=== PATIENT | male | born 1950 | race Caucasian/White ===

== ENCOUNTER 2016-10-27 07:38 | Day surgery (SDC) | payer MEDICARE ==
[~2016-10-27] VITALS: Ht 167.6 cm; Wt 98.0 kg
[~2016-10-27 07:38] MED LIST: ASCO-78 PO; BUPIVAC MPF-EPI 0.5%-1:200000 30 ML VIAL. ONE; CHOL200027 PO; FENTANYL PF 100 MCG/2 ML VIAL. IV PRN; FLUT9.9S NS; HYDROMORPHONE 2 MG/ML VIAL. IV PRN; IV RINGERS,LACTATED 1000ML 1,000 ML IV SCH; LIDOCAINE 1% 1 ML SYRINGE. ID PRN; LISI-334 PO; LORA10TA68 PO; MORPHINE SULFATE 2 MG/ML DISP.SYRIN. IV PRN; ONDANSETRON PF 4 MG/2 ML VIAL. IV PRN; PROCHLORPERAZINE 10 MG/2 ML VIAL. IV PRN; SIMV40TA3 PO; VITA1TAB19 PO
[2016-10-27] MEDS ORDERED: BACITRACIN 50,000 UNIT in IV NORMAL SALINE 500ML BAG 500 ML IRR ONE (08:00)
[2016-10-27] MEDS ORDERED: CEFAZOLIN 2GM PREMIX 50 ML IV ONE ×2 (08:00)
[2016-10-27 08:22] LABS: BASO # 0.1 x10^3/uL (0.0-0.2); BASO % 1 % (0-3); EOS % 2 % (0-3); HEMATOCRIT 42.1 % (39.0-53.0); HEMOGLOBIN 14.3 g/dL (13.0-17.5); LYMPH # 1.3 x10^3/uL (1.0-4.8); LYMPH % 25 % (24-48); MEAN CORPUSCULAR HEMOGLOBIN 30 pg (25-35); MEAN CORPUSCULAR HGB CONC 34 g/dL (31-37); MEAN CORPUSCULAR VOLUME 90 fL (79-100); MONO % 12 % (0-9); NEUT % 60 % (31-73); PLATELET COUNT 167 x10^3/uL (140-400); RED CELL DISTRIBUTION WIDTH 13.2 % (11.5-14.5); WHITE BLOOD COUNT 5.1 x10^3/uL (4.0-11.0)
[2016-10-27 08:28] LABS: CALCIUM 9.2 mg/dL (8.5-10.1); CREATININE 0.9 mg/dL (0.7-1.3); GFR 84.4; POTASSIUM 4.1 mmol/L (3.5-5.1)
[2016-10-27 08:34] LABS: ALBUMIN 3.9 g/dL (3.4-5.0); ALBUMIN/GLOBULIN RATIO 1.1 (1.0-1.7); TOTAL BILIRUBIN 0.6 mg/dL (0.2-1.0); TOTAL PROTEIN 7.4 g/dL (6.4-8.2)
[2016-10-27] MEDS ORDERED: FENTANYL PF 100 MCG/2 ML VIAL. ONE (08:56)
[2016-10-27] MEDS ORDERED: PROPOFOL 20 ML IV ONE (08:57)
[2016-10-27] MEDS ORDERED: ONDANSETRON PF 4 MG/2 ML VIAL. ONE (08:57)
[2016-10-27] MEDS ORDERED: DEXAMETHASONE SOD PHOS 20 MG/5 ML VIAL. ONE (08:57)
[2016-10-27] MEDS ORDERED: LIDOCAINE 2% 100 MG/5 ML DISP.SYRIN. ONE (08:57)
[2016-10-27] MEDS ORDERED: DESFLURANE 31 TO 60 MINUTES IH ONE (08:57)
[2016-10-27] MEDS ORDERED: ROCURONIUM 50 MG/5 ML VIAL. ONE (08:58)
[2016-10-27] MEDS ORDERED: BACITRACIN 50,000 UNIT VIAL. IRR ONE (10:18)
[2016-10-27] MEDS ORDERED: hydrALAZINE 20 MG/ML VIAL. ONE (10:26)
[2016-10-27] MEDS ORDERED: NEOSTIGMINE METHYLSULFATE 5 MG/5 ML SYRINGE. ONE (10:31)
[2016-10-27] MEDS ORDERED: GLYCOPYRROLATE 1 MG/5 ML VIAL. ONE (10:31)
[2016-10-27] MEDS ORDERED: LIDOCAINE 2% PF Vial for OR 5 ML VIAL. ONE (11:21)
--- NOTE | 2016-10-27 11:44 | PDOC4 ---
Operative Note Operative Note Operative Note: Preoperative Diagnosis: Right inguinal hernia Postoperative Diagnosis: Same Procedure: Right inguinal hernia repair with mesh Surgeon: Lex Anesthesia: Gen. EBL: 20 mL Specimen: None Drains: None Complications: None Indication: The patient is a 66-year-old male with a moderate-sized right inguinal hernia. He was referred for surgical repair. The details and risks of surgery were explained to the patient as well as the use of mesh. The risks include bleeding, infection, recurrence, pain, mesh reaction, anesthetic risk, potential need for additional surgery or procedure. He understands and would like to proceed. Description: The patient was taken to the operating room and placed supine on the operating table. Gen. anesthesia was performed. The right groin was shaved and prepped with ChloraPrep and draped in the standard surgical manner. An incision was made in the skin lines of the right groin with a scalpel. Cautery dissection was carried down to the external oblique aponeurosis. The aponeurosis was then opened down to the external ring. The contents of the inguinal canal were digitally mobilized and encircled with a Bacova drain. The vas deferens and other cord structures were included and preserved. The patient had a moderate to large sized direct hernia defect. The hernia sac and its contents were mobilized from the surrounding tissues. The attenuated transversalis fascia was then opened. The preperitoneal fat through the hernia was then reduced and the direct defect was filled with an extra large and medium Prolene mesh plug. The 2 plugs were used due to the size of the defect. The plugs were sutured into position around the periphery with interrupted 2-0 Vicryl. A 6 x 6" Prolene mesh patch was then selected for the repair. The patch was tailored to provide complete coverage of the inguinal floor. The patch was then sutured into position with interrupted 2-0 Vicryl. Inferiorly the mesh was sutured to the shelving edge of the inguinal ligament, while superiorly it was sutured to the internal oblique muscle and aponeurosis. A slit was made to accommodate the cord structures. Upon completion the patch provided for good coverage of the entire inguinal floor with significant overlap of the hernia defect. The deeper plug remained intact as well. The external oblique aponeurosis was closed over the mesh with a running 2-0 Vicryl suture. The subcutaneous tissue was approximated with interrupted 3-0 Vicryl. The skin was closed with a 4-0 running Monocryl suture. Incision was infiltrated with half percent Marcaine with epinephrine. Steri-Strips and a sterile dressing were then applied. The patient tolerated the procedure well and was sent to the recovery room in stable condition. At the end of the case all counts were correct. BELINDA BENTLEY MD Oct 27, 2016 11:44
--- NOTE | 2016-10-27 11:46 | DISCH ---
DISCHARGE INSTRUCTIONS Condition on Discharge Condition on Discharge: Stable Activity After Discharge Activity Instructions for Disc: Other, see below (no lifting over 20 lbs X 4 weeks) Driving Instructions after Dis: Other, see below (no driving while taking pain meds) Diet after Discharge Diet after Discharge: Regular Wound Incision Care Wound/Incision Care: Other, see below (keep dressing clean and dry X 72 hours, may then remove and shower) Follow-Up Follow up with: Dr Bentley in 2 weeks, call for appointment [phone] BELINDA BENTLEY MD Oct 27, 2016 11:46
[2016-10-27] MEDS ORDERED: ACETAMINOPHEN INTRAVENOUS 100 ML IV ONE (12:30)
[2016-10-27] MEDS ORDERED: HYDR-971 PO (12:31)
[2016-10-27] MEDS ORDERED: HYDROCODONE/APAP 5/325MG TABLET. PO ONE (12:45)
[2016-10-27 14:08] VITALS: BP 123/58
== END 2016-10-27 14:36 | disposition home or self-care (01) ==
LOC: SURG 07:38
PROVIDERS: ATTEND Surgery
DX: K40.90 Unilateral inguinal hernia, without obstruction or gangrene, not specified as recurrent (principal); E78.00 Pure hypercholesterolemia, unspecified; I10 Essential (primary) hypertension; E66.9 Obesity, unspecified; M19.90 Unspecified osteoarthritis, unspecified site; Z87.39 Personal history of other diseases of the musculoskeletal system and connective tissue
CPT/HCPCS: 36415; 49505; 80053; 85027; C1769; C1781; J0131; J0360; J0690; J0780; J1100; J2405; J2704; J2710; J3010; J3490; J7040

== ENCOUNTER 2018-09-25 12:50 | Emergency (ER) | payer MEDICARE ==
[~2018-09-25] VITALS: Ht 167.6 cm; Wt 86.2 kg
[~2018-09-25 12:50] MED LIST changes: -BUPIVAC MPF-EPI 0.5%-1:200000 30 ML VIAL. ONE; -FENTANYL PF 100 MCG/2 ML VIAL. IV PRN; +HYDR-3164 PO; -HYDROMORPHONE 2 MG/ML VIAL. IV PRN; -IV RINGERS,LACTATED 1000ML 1,000 ML IV SCH; -LIDOCAINE 1% 1 ML SYRINGE. ID PRN; -MORPHINE SULFATE 2 MG/ML DISP.SYRIN. IV PRN; -ONDANSETRON PF 4 MG/2 ML VIAL. IV PRN; -PROCHLORPERAZINE 10 MG/2 ML VIAL. IV PRN
[2018-09-25] MEDS ORDERED: CYCLOBENZAPRINE 10 MG TABLET. PO ONE (14:15)
[2018-09-25] MEDS ORDERED: HYDROcodone/APAP 5/325MG 1 TAB TABLET PO ONE (14:15)
--- NOTE | 2018-09-25 14:41 | RAD ---
Examination: PA view the chest with left RIBS HISTORY: History of fall, left rib pain COMPARISON: None available FINDINGS: The cardiomediastinal silhouette grossly appears unremarkable. There is no acute infiltrate or visualized pneumothorax identified.No evidence of displaced left rib fracture identified. IMPRESSION: 1. No acute cardiopulmonary findings. 2. No evidence of displaced left rib fracture. Electronically signed by: Ted Mcguire MD (09/25/2018 2:38 PM) [facility]
--- NOTE | 2018-09-25 15:10 | RAD ---
Examination: CT thoracic spine without contrast HISTORY: History of back pain after fall COMPARISON: None available Exposure: One or more of the following individualized dose reduction techniques were utilized for this examination: 1. Automated exposure control 2. Adjustment of the mA and/or kV according to patient size 3. Use of iterative reconstruction technique FINDINGS: The thoracic vertebral body heights are maintained. No evidence of listhesis. Moderate intervertebral disc height loss identified in thoracic spine. The bilateral facets are well aligned. There is nondisplaced fracture of the left transverse process of T11, T10, vertebrae with nondisplaced fractures of the posterior left 10th rib posteriorly and the left 11th rib at the costovertebral junction. IMPRESSION: 1. Nondisplaced fractures of the transverse process of T10, T11 vertebrae. 2. Nondisplaced fracture of the left posterior 10th rib. There is a nondisplaced fracture of the posterior left 11th rib at the costovertebral junction. Electronically signed by: Ted Mcguire MD (09/25/2018 3:07 PM) [facility]
[2018-09-25 16:30] VITALS: BP 133/80
--- NOTE | 2018-09-25 16:44 | PHYS DOC ---
Past Medical History Past Medical History: High Cholesterol, Hypertension, Other Additional Past Medical Histor: DIVERTICULITIS (SANG WESTBROOK APRN) Past Surgical History: Other Additional Past Surgical Histo: RIGHT HERNIA,COLON RESECTION D/T DIVERTICULITIS (SANG WESTBROOK APRN) Alcohol Use: None Drug Use: None (SANG WESTBROOK APRN) Adult General Chief Complaint Chief Complaint: MECHANICAL FALL HPI HPI Patient is a 68 year old male with history of hypertension, high cholesterol, who presents today complaining of 9 out of 10 thoracic back pain and left lateral rib pain that began a few minutes prior to coming to the ED. Patient describes the pain as sharp and constant. Patient states she was walking down 3 steps when she got to the middle stated and fell. Patient denies hitting his head on the ground. Denies any loss of consciousness. Denies any pain radiating to bilateral lower extremities, denies any loss of bowel bladder function. Denies any hematuria. (SANG WESTBROOK APRN) Review of Systems Review of Systems Constitutional: Denies fever or chills [] Eyes: Denies change in visual acuity, redness, or eye pain [] HENT: Denies nasal congestion or sore throat [] Respiratory: Denies cough or shortness of breath [] Cardiovascular: No additional information not addressed in HPI [] GI: Denies abdominal pain, nausea, vomiting, bloody stools or diarrhea [] : Denies dysuria or hematuria [] Musculoskeletal: Reports mid back pain Integument: Denies rash or skin lesions [] Neurologic: Denies headache, focal weakness or sensory changes [] All other systems were reviewed and found to be within normal limits, except as documented in this note. (SANG WESTBROOK APRN) Current Medications Current Medications Current Medications Medications (Trade) Dose Ordered Sig/Deidra Start Time Stop Time Status Last Admin Dose Admin Acetaminophen/ Hydrocodone Bitart (Lortab 5/325) 2 tab 1X ONCE 09/25/18 14:15 09/25/18 14:16 DC 09/25/18 14:36 2 TAB Cyclobenzaprine HCl (Flexeril) 10 mg 1X ONCE 09/25/18 14:15 09/25/18 14:16 DC 09/25/18 14:36 10 MG Morphine Sulfate (Morphine Sulfate) 5 mg 1X ONCE 09/25/18 16:45 09/25/18 16:46 DC 09/25/18 16:45 5 MG (TANNER DUFF DO) Allergies Allergies Allergies Coded Allergies Type Severity Reaction Last Updated Verified aspirin Allergy Intermediate Swelling 10/27/16 Yes ibuprofen Allergy Intermediate Swelling 10/27/16 Yes NSAIDS (Non-Steroidal Anti-Inflamma Allergy Unknown Swelling 10/27/16 Yes erythromycin base Allergy Unknown Rash 10/27/16 Yes (TANNER DUFF DO) Physical Exam Physical Exam Constitutional: Well developed, well nourished, no acute distress, non-toxic appearance. [] HENT: Normocephalic, atraumatic, bilateral external ears normal, oropharynx moist, no oral exudates, nose normal. [] Eyes: PERRLA, EOMI, conjunctiva normal, no discharge. [] Neck: Normal range of motion, no tenderness, supple, no stridor. [] Cardiovascular:Heart rate regular rhythm, no murmur [] Lungs & Thorax: Bilateral breath sounds clear to auscultation, tenderness on palpation of the left lateral ribs mid axillary line approximately ribs 8 through 10 Abdomen: Bowel sounds normal, soft, no tenderness, no masses, no pulsatile masses. [] Skin: Warm, dry, no erythema, no rash. [] Back: Moderate midline thoracic spine tenderness as well as paraspinal muscle tenderness to the thoracic spine diffusely, no CVA tenderness. [] Extremities: No tenderness, no cyanosis, no clubbing, ROM intact, no edema. [] Neurologic: Alert and oriented X 3, normal motor function, normal sensory function, no focal deficits noted. [] Psychologic: Affect normal, judgement normal, mood normal. [] (SANG WESTBROOK APRN) Current Patient Data Vital Signs Vital Signs Date Time Temp Pulse Resp B/P (MAP) Pulse Ox O2 Delivery O2 Flow Rate FiO2 09/25/18 16:30 80 18 97 09/25/18 13:52 97.9 142/81 (101) Room Air 97.9 (TANNER DUFF DO) EKG EKG [] (SANG WESTBROOK APRN) Radiology/Procedures Radiology/Procedures []PROCEDURE: CT THORACIC SPINE WO CONTRAST Examination: CT thoracic spine without contrast HISTORY: History of back pain after fall COMPARISON: None available Exposure: One or more of the following individualized dose reduction techniques were utilized for this examination: 1. Automated exposure control 2. Adjustment of the mA and/or kV according to patient size 3. Use of iterative reconstruction technique FINDINGS: The thoracic vertebral body heights are maintained. No evidence of listhesis. Moderate intervertebral disc height loss identified in thoracic spine. The bilateral facets are well aligned. There is nondisplaced fracture of the left transverse process of T11, T10, vertebrae with nondisplaced fractures of the posterior left 10th rib posteriorly and the left 11th rib at the costovertebral junction. IMPRESSION: 1. Nondisplaced fractures of the transverse process of T10, T11 vertebrae. 2. Nondisplaced fracture of the left posterior 10th rib. There is a nondisplaced fracture of the posterior left 11th rib at the costovertebral junction. Electronically signed by: Ted Mcguire MD (09/25/2018 3:07 PM) [facility] DICTATED and SIGNED BY: TED MCGUIRE MD DATE: 09/25/18 1503 (SANG WESTBROOK APRN) Course & Med Decision Making Course & Med Decision Making Pertinent Labs and Imaging studies reviewed. (See chart for details) This is a 68-year-old male patient presenting to the ED today to be evaluated status post falling, no loss of consciousness, mid back pain and left lateral rib pain. CT of thoracic spine was noted for Nondisplaced fractures of the transverse process of T10, T11 vertebrae. Nondisplaced fracture of the left posterior 10th rib. There is a nondisplaced fracture of the posterior left 11th rib at the costovertebral junction. Patient is up and ambulating. Spoke with Yudy KWAN for neurosurgery, he requested patient to be discharged with pain medications and follow-up with his own PCP. Patient was discharged with hydrocodone, and Norflex. Ice elevation encouraged. Follow-up with PCP in the next 1 week. (SANG WESTBROOK APRN) Dragon Disclaimer Dragon Disclaimer This electronic medical record was generated, in whole or in part, using a voice recognition dictation system. (SANG WESTBROOK APRN) Departure Departure Impression: Primary Impression: Fall down steps Additional Impressions: Fracture of transverse process of thoracic vertebra Multiple rib fractures Disposition: 01 HOME, SELF-CARE Condition: STABLE Referrals: TANNER SEGAL MD (PCP) Follow-up next week Patient Instructions: Fall Prevention and Home Safety, Transverse Process Fracture Additional Instructions: You were evaluated in the medicine motor falling. You do have T10 and T11 transverse process fractures, you also have fractures of rib 10 and 11 on her left side. Ice elevate the affected regions, take deep breaths 10 times every hour while awake. Take the prescribed pain medications as needed. Follow-up with your doctor next week. Come back to the ED at any point symptoms worsen. Scripts Hydrocodone/Apap 5-325 (NORCO 5-325 TABLET) 1 Each Tablet 1-2 TAB PO Q4-6HRS PRN for PAIN, #40 TAB Prov: SANG WESTBROOK ERI 09/25/18 Orphenadrine Citrate (ORPHENADRINE CITRATE) 100 Mg Tablet.er 1 TAB PO BID, #60 TAB 1 Refill Prov: FABIOLAABBEYSANG HWANG 09/25/18 Attending Signature Attending Signature I have reviewed the PA/ELASTIC CUTTER's note and plan of care. I was available for consultation as needed during the patient's visit in the emergency department. I agree with the clinical impression, plan, and disposition. (TANNER DUFF DO) Problem Qualifiers Primary Impression: Fall down steps Encounter type: initial encounter Qualified Codes: W10.8XXA - Fall (on) ( from) other stairs and steps, initial encounter Additional Impressions: Fracture of transverse process of thoracic vertebra Encounter type: initial encounter Fracture type: closed Qualified Codes: S22.009A - Unspecified fracture of unspecified thoracic vertebra, initial encounter for closed fracture Multiple rib fractures Encounter type: initial encounter Fracture type: closed Laterality: left Qualified Codes: S22.42XA - Multiple fractures of ribs, left side, initial encounter for closed fracture FABIOLAABBEYSANG APRN Sep 25, 2018 16:44 TANNER DUFF DO Sep 27, 2018 18:17
[2018-09-25] MEDS ORDERED: MORPHINE SULFATE 10 MG/ML VIAL. IM ONE (16:45)
[2018-09-25] MEDS ORDERED: ORPH100T PO (17:01)
[2018-09-25] MEDS ORDERED: HYDR-3164 PO (17:01)
== END 2018-09-25 17:10 | disposition home or self-care (01) ==
LOC: ER 12:50
DX: S22.42XA Multiple fractures of ribs, left side, initial encounter for closed fracture (principal); S22.089A Unspecified fracture of T11-T12 vertebra, initial encounter for closed fracture; S22.079A Unspecified fracture of T9-T10 vertebra, initial encounter for closed fracture; I10 Essential (primary) hypertension; E78.00 Pure hypercholesterolemia, unspecified; Z88.6 Allergy status to analgesic agent; Z88.1 Allergy status to other antibiotic agents; Z88.8 Allergy status to other drugs, medicaments and biological substances; W10.8XXA Fall (on) (from) other stairs and steps, initial encounter; Y93.89 Activity, other specified; Y92.89 Other specified places as the place of occurrence of the external cause; Y99.8 Other external cause status
CPT/HCPCS: 71101; 72128; 96372; 99284; J2270

== ENCOUNTER → 2019-07-28 | Outpatient (CLI) | payer MEDICARE ==
[~2019-07-28] MED LIST changes: +ORPH100T PO; +SIMV40TA18 PO; -SIMV40TA3 PO
--- NOTE | 2019-07-28 16:37 | KCIC ---
EXAM: HAND BILAT 3V. HISTORY: Polyarthralgia. COMPARISON: None. FINDINGS: Erosive osteoarthritis is severe at the left fourth proximal interphalangeal joint. It is moderate to severe throughout the left distal interphalangeal joints and the right first through third distal interphalangeal joints. It is mild to moderate in the right proximal interphalangeal joints, and moderate elsewhere in the left proximal interphalangeal joints. First carpometacarpal osteoarthritis is moderate on the left and mild on the right. Triscaphe osteoarthritis is moderate bilaterally. Metacarpophalangeal osteoarthritis is mild along both first and third rays. Distal radioulnar joint osteoarthritis is mild on the left greater than right. No fractures are identified. Alignment is preserved. IMPRESSION: 1. 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 2. Osteoarthritis is mild to moderate elsewhere as above. Electronically signed by: Joann Bejarano MD (07/28/2019 4:34 PM) [facility]
== END | disposition home or self-care (01) ==
LOC: KCIC 12:37
PROVIDERS: ATTEND Internal Medicine Rheumatology
DX: M19.042 Primary osteoarthritis, left hand (principal); M19.041 Primary osteoarthritis, right hand
CPT/HCPCS: 73130

== ENCOUNTER 2019-12-20 10:22 | Emergency (ER) | payer MEDICARE ==
[~2019-12-20] VITALS: Ht 167.6 cm; Wt 90.0 kg
[2019-12-20] MEDS ORDERED: SIMETHICONE/SOD BICARB/CITRIC ACID PACKET. PO ONE (10:45)
[2019-12-20] MEDS ORDERED: GLUCAGON,HUMAN RECOMBINANT 1 MG/ML VIAL. ONE (10:50)
--- NOTE | 2019-12-20 10:52 | PHYS DOC ---
Past Medical History Past Medical History: High Cholesterol, Hypertension, Other Additional Past Medical Histor: DIVERTICULITIS Past Surgical History: Other Additional Past Surgical Histo: RIGHT HERNIA,COLON RESECTION D/T DIVERTICULITIS Smoking Status: Never Smoker Alcohol Use: None Drug Use: None General Adult EDM: Chief Complaint: SWALLOWED FORIEGN BODY HPI: HPI: Patient is a 69 year old male presents with a chief complaint of foreign body sensation in his throat. Prior to arrival patient was eating an apple when he had sudden onset of difficulty swallowing. Patient is spitting up saliva. Patient is in no respiratory distress. Review of Systems: Review of Systems: Constitutional: Denies fever or chills. [] Eyes: Denies change in visual acuity. [] HENT: Denies nasal congestion or sore throat. [] Positive foreign body throat Respiratory: Denies cough or shortness of breath. [] Cardiovascular: Denies chest pain or edema. [] GI: Denies abdominal pain, , bloody stools or diarrhea. Denies vomiting [] : Denies dysuria. [] Musculoskeletal: Denies back pain or joint pain. [] Integument: Denies rash. [] Neurologic: Denies headache, focal weakness or sensory changes. [] Endocrine: Denies polyuria or polydipsia. [] Lymphatic: Denies swollen glands. [] Psychiatric: Denies depression or anxiety. [] Heart Score: Risk Factors: Risk Factors: DM, Current or recent (<one month) smoker, HTN, HLP, family history of CAD, obesity. Risk Scores: Score 0 - 3: 2.5% MACE over next 6 weeks - Discharge Home Score 4 - 6: 20.3% MACE over next 6 weeks - Admit for Clinical Observation Score 7 - 10: 72.7% MACE over next 6 weeks - Early Invasive Strategies Current Medications: Current Medications Medications (Trade) Dose Ordered Sig/Deidra Start Time Stop Time Status Last Admin Dose Admin Glucagon (Glucagen) 1 mg 1X ONCE 12/20/19 11:00 12/20/19 11:01 UNV Simethicone/ Sodium Bicarb/ Citric Ac (E-Z-Gas) 1 packet 1X ONCE 12/20/19 10:45 12/20/19 10:46 DC Allergies: Allergies: Allergies Coded Allergies Type Severity Reaction Last Updated Verified aspirin Allergy Intermediate Swelling 10/27/16 Yes ibuprofen Allergy Intermediate Swelling 10/27/16 Yes NSAIDS (Non-Steroidal Anti-Inflamma Allergy Unknown Swelling 10/27/16 Yes erythromycin base Allergy Unknown Rash 10/27/16 Yes Physical Exam: PE: Constitutional: Well developed, well nourished, no acute distress, non-toxic appearance. [] HENT: Normocephalic, atraumatic, bilateral external ears normal, oropharynx moist, no oral exudates, nose normal. [] Eyes: PERRLA, EOMI, conjunctiva normal, no discharge. [] Neck: Normal range of motion, no tenderness, supple, no stridor. [] Cardiovascular:Heart rate regular rhythm, no murmur [] Lungs & Thorax: Bilateral breath sounds clear to auscultation [] Abdomen: Bowel sounds normal, soft, no tenderness, no masses, no pulsatile masses. [] Skin: Warm, dry, no erythema, no rash. [] Back: No tenderness, no CVA tenderness. [] Extremities: No tenderness, no cyanosis, no clubbing, ROM intact, no edema. [] Neurologic: Alert and oriented X 3, normal motor function, normal sensory function, no focal deficits noted. [] Psychologic: Affect normal, judgement normal, mood normal. [] Current Patient Data: Vital Signs: Vital Signs Date Time Temp Pulse Resp B/P (MAP) Pulse Ox O2 Delivery O2 Flow Rate FiO2 12/20/19 10:33 97.8 78 194/87 (122) 100 Room Air 97.8 EKG: EKG: [] Radiology/Procedures: Radiology/Procedures: [] Course & Med Decision Making: Course & Med Decision Making Pertinent Labs and Imaging studies reviewed. (See chart for details) [] Patient was treated with glucagon. Patient eventually vomited and spit up foreign body. Post emesis patient states he feels as if foreign body is gone. Patient is able to now handle oral secretions. Patient tolerated p.o. without any issue. Oj Disclaimer: Oj Disclaimer: This electronic medical record was generated, in whole or in part, using a voice recognition dictation system. Departure Departure Impression: Primary Impression: Esophageal foreign body Qualified Codes: T18.108A - Unspecified foreign body in esophagus causing other injury, initial encounter Disposition: 01 HOME, SELF-CARE Condition: STABLE Referrals: TANNER SEGAL MD (PCP) Patient Instructions: Swallowed Foreign Body, Adult NOÉ MCHUGH I DO December 20, 2019 10:52
[2019-12-20] MEDS ORDERED: GLUCAGON,HUMAN RECOMBINANT 1 MG/ML VIAL. IV ONE ×2 (11:00→11:15)
[2019-12-20 11:52] VITALS: BP 158/88
== END 2019-12-20 11:59 | disposition home or self-care (01) ==
LOC: ER 10:22
DX: T18.198A Other foreign object in esophagus causing other injury, initial encounter (principal); R13.10 Dysphagia, unspecified; E78.00 Pure hypercholesterolemia, unspecified; I10 Essential (primary) hypertension; Z98.890 Other specified postprocedural states; Z88.6 Allergy status to analgesic agent; Z88.2 Allergy status to sulfonamides; Z88.1 Allergy status to other antibiotic agents; Z88.8 Allergy status to other drugs, medicaments and biological substances; X58.XXXA Exposure to other specified factors, initial encounter; Y93.89 Activity, other specified; Y92.89 Other specified places as the place of occurrence of the external cause; Y99.8 Other external cause status
CPT/HCPCS: 96374; 99284; J1610

== ENCOUNTER → 2021-05-20 | Day surgery (SDC) | payer MEDICARE ==
[~2021-05-20] VITALS: Ht 167.6 cm; Wt 90.0 kg
[~2021-05-20] MED LIST changes: +IV RINGERS,LACTATED 1000ML 1,000 ML IV SCH; +LIDOCAINE 2% PF 5 ML VIAL. ONE; -LISI-334 PO; +LISI20TA18 PO; +PROPOFOL 10 MG/ML (20ML) VIAL. IV ONE
[2021-05-20 13:05] VITALS: BP 153/72
--- NOTE | 2021-05-20 13:58 | PDOC4 ---
PROCEDURE Procedure Colonoscopy with biopsy Indication: h/o polyps, last 2015. Meds: per anesthesia. Findings: LUCRECIA: normal --'Scope advanced to cecum. Prep adequate. Mucosa normal. Colocolostomy in proximal sigmoid. Few diverticula in this area. 4mm polyp, transverse, biopsied off. Otherwise normal exam. Marisol. well. IMP: Polyp Diverticulosis Prior resection, historically for diverticular disease. REC: Await path. Resume meds and diet as before. F/u in 2 weeks. Repeat colonoscopy 5 years. TANNER HOLLINGSWORTH MD May 20, 2021 13:58
[2021-05-20 14:11] VITALS: BP 146/80
--- NOTE | 2021-05-22 16:16 | PATHOLOGY ---
[facility] Accession Number: [id number] . 01 Material submitted: . colon - TRANSVERSE COLON POLYP BIOPSY. Modifiers: transverse . 01 Clinical history: . CRC SCREEN COLONOSCOPY HX POLYPS . 02 Diagnosis: Colon biopsy, transverse colon polyp: - Tubular adenoma. ([facility]; 05/22/2021) [facility] 05/22/2021 0959 Local . 02 Comment: There is no high-grade dysplasia or evidence of malignancy. ([facility]; 05/22/2021) . 02 Electronically signed: . Thomas Alexandre MD, Pathologist NPI- [id number] . 01 Gross description: . The specimen is received in formalin, labeled "Howard Javier, transverse colon polyp BX". Received is a segment of pale haney tissue measuring 0.3 cm in maximum dimensions. The specimen is submitted entirely in cassette A1.([facility]; 05/21/2021) [facility] 05/21/2021 1628 Local . 02 Pathologist provided ICD-10: D12.3 . 02 CPT . 182355 Specimen Comment: A courtesy copy of this report has been sent to [phone], [phone] Specimen Comment: [id number] Specimen Comment: Report sent to / DR SEGAL Performed at: 01 [facility] [address], [place] [id number] MD Dariel Lauglhin MD Phone: [phone] Performed at: 02 [facility] [address] [place], [place] [id number] MD Thomas Alexandre MD Phone: [phone]
== END | disposition home or self-care (01) ==
LOC: ENDOS 12:31
PROVIDERS: ATTEND Internal Medicine Gastroenterology
DX: Z12.11 Encounter for screening for malignant neoplasm of colon (principal); D12.3 Benign neoplasm of transverse colon; K57.30 Diverticulosis of large intestine without perforation or abscess without bleeding; K63.89 Other specified diseases of intestine; K64.0 First degree hemorrhoids; I10 Essential (primary) hypertension; E78.00 Pure hypercholesterolemia, unspecified; G47.39 Other sleep apnea; E66.9 Obesity, unspecified; N40.0 Benign prostatic hyperplasia without lower urinary tract symptoms; M19.90 Unspecified osteoarthritis, unspecified site; Z86.010 Personal history of colon polyps; Z98.0 Intestinal bypass and anastomosis status; Z79.899 Other long term (current) drug therapy; Z98.890 Other specified postprocedural states; Z88.1 Allergy status to other antibiotic agents; Z88.8 Allergy status to other drugs, medicaments and biological substances
CPT/HCPCS: 45380; J2704